=== PATIENT | male | born 1980 | race Caucasian/White ===

== ENCOUNTER 2017-12-12 21:57 | Inpatient (IN) | payer OTHER ==
[~2017-12-12] VITALS: Ht 185.4 cm; Wt 79.2 kg
[2017-12-12 23:49] LABS: BASOPHIL % 1.1 % (0-2); PLATELET COUNT 381 x10^3mcL (130-400); RED CELL DISTRIBUTION WIDTH 12.4 % (11.5-14.5)
[2017-12-12 23:55] LABS: CALCIUM 8.4 mg/dL (8.5-10.1); CHLORIDE SERUM 101 mmol/L (98-107); GFR1 > 60 mL/min; GLUCOSE SERUM 375 mg/dL (74-106); POTASSIUM SERUM 4.9 mmol/L (3.5-5.1); SODIUM SERUM 136 mmol/L (136-145)
[2017-12-12 23:59] LABS: ALBUMIN 2.6 g/dL (3.4-5.0); ALKALINE PHOSPHATASE 86 U/L (46-116); ALT/SGPT 15 U/L (16-63); AST/SGOT 13 U/L (15-37); BILIRUBIN TOTAL 0.2 mg/dL (0.20-1.00); TOTAL PROTEIN, SERUM 7.1 g/dL (6.4-8.2)
[2017-12-13] MEDS ORDERED: HUMALOG100 U/ML SC (00:06)
[2017-12-13] MEDS ORDERED: LANTUS SOLOS100 U/M1 SQ (00:06)
[2017-12-13] MEDS ORDERED: BACTRIM DS1 TAB PO (00:07)
[2017-12-13] MEDS ORDERED: KEFLEX500 M1 PO (00:08)
[2017-12-13 00:21] LABS: AMPHETAMINE QUAL UR NONE DETECTED (See below)
[2017-12-13 01:05] VITALS: BP 133/89
[2017-12-13 01:18] LABS: MAGNESIUM 1.8 mg/dL (1.8-2.4); PHOSPHOROUS 2.5 mg/dL (2.5-4.9); T3 TOTAL 0.86 ng/mL
[2017-12-13 01:22] LABS: FREE T4 1.25 ng/dL (0.76-1.46); FREE THYROXINE INDEX 2.4 ug/dL (1.4-4.5); T4(THYROXINE) 6.3 ug/dL (4.7-13.3)
[2017-12-13 03:45] LABS: microscopic required? NO
[2017-12-13 03:53] LABS: UA SPECIFIC GRAVITY 1.015 (1.005-1.035); urine erythrocyte NEGATIVE (NEGATIVE)
[2017-12-13 06:22] LABS: PLATELET COUNT 387 x10^3mcL (130-400); RED CELL DISTRIBUTION WIDTH 12.5 % (11.5-14.5)
[2017-12-13 06:44] LABS: CALCIUM 8.4 mg/dL (8.5-10.1); CARBON DIOXIDE 28.9 mmol/L (21-32); CHLORIDE SERUM 105 mmol/L (98-107); CREATININE SERUM 0.8 mg/dL (0.7-1.3); GFR1 > 60 mL/min; GLUCOSE SERUM 125 mg/dL (74-106); HDL CHOLESTEROL 36 mg/dL (40-60); POTASSIUM SERUM 3.9 mmol/L (3.5-5.1); SODIUM SERUM 141 mmol/L (136-145); TRIGLYCERIDES 48 mg/dL (<150)
[2017-12-13 06:45] LABS: CHOLESTEROL 115 mg/dL (<200); CHOLESTEROL/HDL RATIO 3.2
[2017-12-13 09:29] VITALS: BP 107/77
[2017-12-13 13:40] VITALS: BP 126/82
[2017-12-13 17:56] VITALS: BP 141/94
[2017-12-13 20:06] VITALS: BP 120/84
[2017-12-14 05:51] VITALS: BP 129/73
[2017-12-14 06:48] LABS: BASOPHIL % 0.8 % (0-2); RED CELL DISTRIBUTION WIDTH 12.5 % (11.5-14.5)
[2017-12-14 07:09] LABS: CALCIUM 9.4 mg/dL (8.5-10.1); CARBON DIOXIDE 32.4 mmol/L (21-32); CHLORIDE SERUM 104 mmol/L (98-107); CREATININE SERUM 0.9 mg/dL (0.7-1.3); GFR1 > 60 mL/min; GLUCOSE SERUM 134 mg/dL (74-106); PHOSPHOROUS 3.8 mg/dL (2.5-4.9); POTASSIUM SERUM 3.9 mmol/L (3.5-5.1); SODIUM SERUM 141 mmol/L (136-145)
[2017-12-14 07:19] LABS: PLATELET COUNT 412 x10^3mcL (130-400)
[2017-12-14 09:42] VITALS: BP 117/80
[2017-12-14 13:21] VITALS: BP 102/70
[2017-12-14 16:40] VITALS: BP 112/84
[2017-12-14 19:44] VITALS: BP 124/86
[2017-12-14 21:40] VITALS: BP 98/68
[2017-12-15 05:42] VITALS: BP 92/59
[2017-12-15 07:09] LABS: CALCIUM 8.9 mg/dL (8.5-10.1); CARBON DIOXIDE 35.4 mmol/L (21-32); CHLORIDE SERUM 104 mmol/L (98-107); CREATININE SERUM 0.9 mg/dL (0.7-1.3); GFR1 > 60 mL/min; GLUCOSE SERUM 147 mg/dL (74-106); MAGNESIUM 2.1 mg/dL (1.8-2.4); POTASSIUM SERUM 4.3 mmol/L (3.5-5.1); SODIUM SERUM 140 mmol/L (136-145)
[2017-12-15 07:13] LABS: BASOPHIL % 1.1 % (0-2); PLATELET COUNT 398 x10^3mcL (130-400); RED CELL DISTRIBUTION WIDTH 12.3 % (11.5-14.5)
[2017-12-15 10:00] VITALS: BP 126/83
[2017-12-15] MEDS ORDERED: ZOS3PM IV (12:28)
[2017-12-15] MEDS ORDERED: BD LACTINEX1.4 MG PO (12:29)
[2017-12-15 12:34] VITALS: BP 117/76
[2017-12-15 12:44] VITALS: Ht 185.4 cm; Wt 79.2 kg
[2017-12-15] MEDS ORDERED: VANCO 1.51.5 GM/150 IV (12:54)
[2017-12-15 15:13] VITALS: BP 117/76
== END 2017-12-15 16:22 | DRG 344 ==
LOC: ED 21:57 → DU 12-13 00:06
PROVIDERS: Emergency Medicine; Family Medicine
DX: E11.69 Type 2 diabetes mellitus with other specified complication (principal); M86.8X7 Other osteomyelitis, ankle and foot; E43 Unspecified severe protein-calorie malnutrition; E11.51 Type 2 diabetes mellitus with diabetic peripheral angiopathy without gangrene; E11.65 Type 2 diabetes mellitus with hyperglycemia; D64.9 Anemia, unspecified; B35.1 Tinea unguium; Z53.29 Procedure and treatment not carried out because of patient's decision for other reasons; Z59.0 Homelessness; Z56.0 Unemployment, unspecified; Z68.23 Body mass index [BMI] 23.0-23.9, adult; Z79.4 Long term (current) use of insulin; I70.209 Unspecified atherosclerosis of native arteries of extremities, unspecified extremity
CPT/HCPCS: 82962; 83880; 84439; 97110-GP; 97116-GP; 97530-GP; 97535-GP; J0696; J1815; J2543; J3490; J7030; J7040; Q0092